=== PATIENT | female | born 1945 | race Caucasian/White ===

== ENCOUNTER 2017-12-10 09:43 | Outpatient (CLI) | payer MEDICARE ==
--- NOTE | 2017-12-10 15:32 | RAD ---
RIGHT FOOT 3 VIEWS: Date: 12/10/17 HISTORY: Abnormal uptake of radiotracer on bone scan. COMPARISON: None. FINDINGS: There is diffuse bone demineralization. No evidence of tarsal coalition. Lisfranc alignment is mainta ined. No significant loss of joint space height. No fractures. IMPRESSION: Unremarkable 3 views right foot. No acute abnormality. POS: [facility]
--- NOTE | 2017-12-10 15:37 | RAD ---
2 VIEWS RIGHT HIP: Date: 12/10/17 HISTORY: Abnormal uptake of radiotracer on recent bone scan. COMPARISON: None. FINDINGS: Mild loss of joint space height. Minimal enthesopathic change at the greater tuberosity. Definite fra cture/cortical irregularity is not appreciated. IMPRESSION: No obvious fracture at the greater trochanter. No radiographic correlate to explain the marked uptake of radiotracer on the bone scan. Therefore, MRI is recommended to better assess the bone marrow. CODE T. POS: [facility]
--- NOTE | 2017-12-10 15:59 | NM ---
NUCLEAR MEDICINE THREE PHASE BONE SCAN OF THE FEET AND WHOLE BODY BONE SCAN: 12/10/17 HISTORY: Unspecified injury of the foot. COMPARISON: None. TECHNIQUE: Patient administered 30 millicuries of technetium 99m MDP intravenously. Three phase imaging of the feet was performed. Whole body imaging is performed. FINDINGS: There is increased flow in the left foot involving the midfoot and hindfoot osseous structures, speci fically the talus navicular bone. There is associated increased signal in the blood pool in delayed i mages. Delayed images also demonstrate increased uptake in anterior right ribs, posterior left L5 ped icle, right knee. There is also marked radiotracer localization in the right greater trochanter. Aby elation made with right foot and right hip radiographs do not demonstrate any osseous abnormalities, by radiograph. The possibility of a radiographically occult stress fracture of the right foot and pos sible bursitis of the right hip cannot be excluded. MRI of both regions is recommended. IMPRESSION: Uptake of radiotracer as described above. MRI is recommended. Code T POS: [facility]
== END 2017-12-10 09:44 | disposition home or self-care (01) ==
LOC: NM 09:43
PROVIDERS: ATTEND Family Medicine
DX: S99.921A Unspecified injury of right foot, initial encounter (principal)
CPT/HCPCS: 73502; 73630; 78315; A9503

== ENCOUNTER 2018-07-06 08:48 | Outpatient (CLI) | payer MEDICARE ==
--- NOTE | 2018-07-06 10:12 | MMO ---
Bilateral MAMMO Bilat Screen [facility]. CLINICAL HISTORY: Patient is 73 years old and is seen for screening. The patient has no family history of breast cancer. The patient has no personal history of cancer. VIEWS: The views performed were: bilateral craniocaudal with tomosynthesis; bilateral mediolateral oblique with tomosynthesis; and bilateral exaggerated craniocaudal. FILMS COMPARED: The present examination has been compared to prior imaging studies performed at [facility] on 04/25/2010, 04/26/2010, 06/04/2011, 10/23/2014 and 01/30/2016. MAMMOGRAM FINDINGS: There are scattered fibroglandular densities. There are stable benign appearing calcifications seen in the left breast. There are no suspicious masses, suspicious calcifications, or new areas of architectural distortion. IMPRESSION: THERE IS NO MAMMOGRAPHIC EVIDENCE OF MALIGNANCY. A ROUTINE FOLLOW-UP MAMMOGRAM IN 1 YEAR IS RECOMMENDED. THE RESULTS OF THIS EXAM WERE SENT TO THE PATIENT. ACR BI-RADS Category 2 - Benign finding MAMMOGRAPHY NOTE: 1. A negative mammogram report should not delay a biopsy if a dominant of clinically suspicious mass is present. 2. Approximately 10% to 15% of breast cancers are not detected by mammography. 3. Adenosis and dense breasts may obscure an underlying neoplasm.
== END 2018-07-06 08:49 | disposition home or self-care (01) ==
LOC: BICMAMMO 08:48
PROVIDERS: ATTEND Family Medicine
DX: Z12.31 Encounter for screening mammogram for malignant neoplasm of breast (principal)
CPT/HCPCS: 77063; 77067

== ENCOUNTER 2018-11-15 13:43 | Outpatient (CLI) | payer MEDICARE ==
[~2018-11-15 13:43] MED LIST: ISOVUE-370 76%-LOCM 1 ML ONE
--- NOTE | 2018-11-15 14:24 | ULT ---
Ultrasound Doppler duplex carotid: DATE: 11/15/2018 HISTORY: 73-year-old female with facial weakness. TECHNIQUE: Grayscale, color-flow, and spectral analysis, of major arteries of neck. FINDINGS: No significant plaque visualized. Highest peak systolic velocities in the internal carotid arteries: Right: 125 Left: 105 ICA/CCA ratios: Right: 0.9 Left: 0.8 Pulse Doppler waveforms are normal. IMPRESSION: Normal
[2018-11-15 14:26] LABS: Estimated GFR-MDRD - POC Greater than 90
--- NOTE | 2018-11-15 14:48 | CT ---
CT HEAD WITH AND WITHOUT CONTRAST: Reference is made to 03/20/2014 brain MRI. CLINICAL INDICATION: Dizziness. FINDINGS: Stable prominent ex vacuo dilatation of ventricular system, notably the left lateral ventri aurelia due to adjacent encephalomalacia. Extra-axial cystic lesion, 2.2 cm, is suggested overlying the left convexity, although limited in assessment by CT imaging. No associated enhancement. No acute mid line shift. Multifocal fluid layering of paranasal sinuses is seen. IMPRESSION: Prominent ex vacuo dilatation of left lateral ventricle with adjacent encephalomalacia of the left cerebral hemisphere. Extra-axial cystic lesion is suggested without associated enhancement. Transcribed Date/Time: 11/15/2018 2:58 PM
== END 2018-11-15 13:44 | disposition home or self-care (01) ==
LOC: BICULT 13:43
PROVIDERS: ATTEND Physician Assistant Medical
DX: R42 Dizziness and giddiness (principal); R51 Headache; R29.810 Facial weakness; G93.89 Other specified disorders of brain
CPT/HCPCS: 70470; 82565; 93880; Q9966

== ENCOUNTER 2020-02-29 10:53 | Outpatient (CLI) | payer MEDICARE ==
--- NOTE | 2020-02-29 13:57 | MMO ---
Bilateral MAMMO Bilat Screen [facility]. CLINICAL HISTORY: Patient is 74 years old and is seen for screening. The patient has no family history of breast cancer. The patient has no personal history of cancer. VIEWS: The views performed were: bilateral craniocaudal with tomosynthesis; bilateral mediolateral oblique with tomosynthesis; and bilateral exaggerated craniocaudal. FILMS COMPARED: The present examination has been compared to prior imaging studies performed at [facility] on 06/04/2011, 10/23/2014, 01/30/2016 and 07/06/2018. This study has been interpreted with the assistance of computer-aided detection. MAMMOGRAM FINDINGS: There are scattered fibroglandular densities. Benign calcifications are noted bilaterally. There are no suspicious masses, suspicious calcifications, or new areas of architectural distortion. IMPRESSION: THERE IS NO MAMMOGRAPHIC EVIDENCE OF MALIGNANCY. A ROUTINE FOLLOW-UP MAMMOGRAM IN 1 YEAR IS RECOMMENDED. THE RESULTS OF THIS EXAM WERE SENT TO THE PATIENT. ACR BI-RADS Category 2 - Benign finding MAMMOGRAPHY NOTE: 1. A negative mammogram report should not delay a biopsy if a dominant of clinically suspicious mass is present. 2. Approximately 10% to 15% of breast cancers are not detected by mammography. 3. Adenosis and dense breasts may obscure an underlying neoplasm. Reported by: STEPHANIE BRITO MD Electonically Signed: [id number]
== END 2020-02-29 10:54 | disposition home or self-care (01) ==
LOC: BICMAMMO 10:53
PROVIDERS: ATTEND Physician Assistant Medical
DX: Z12.31 Encounter for screening mammogram for malignant neoplasm of breast (principal)
CPT/HCPCS: 77063; 77067

== ENCOUNTER 2021-08-27 13:00 | Outpatient (CLI) | payer MEDICARE | END 2021-08-27 13:01 | disposition home or self-care (01) | LOC: BICRAD 13:00 | PROVIDERS: ATTEND Nurse Practitioner Family | DX: R05.9 Cough, unspecified (principal); R91.8 Other nonspecific abnormal finding of lung field | CPT/HCPCS: 71046 ==

== ENCOUNTER 2021-09-03 08:46 | Outpatient (CLI) | payer MEDICARE ==
[2021-09-03 09:30] LABS: Estimated GFR-MDRD - POC Greater than 90
== END 2021-09-03 08:47 | disposition home or self-care (01) ==
LOC: CT 08:46
PROVIDERS: ATTEND Nurse Practitioner Family
DX: R05.9 Cough, unspecified (principal); R91.8 Other nonspecific abnormal finding of lung field
CPT/HCPCS: 71046; 71260; 82565

== ENCOUNTER 2022-07-23 13:20 | Outpatient (CLI) | payer MEDICARE | END 2022-07-23 13:21 | disposition home or self-care (01) | LOC: BICRAD 13:20 | PROVIDERS: ATTEND Nurse Practitioner Family | DX: R91.1 Solitary pulmonary nodule (principal); R06.2 Wheezing; R91.8 Other nonspecific abnormal finding of lung field | CPT/HCPCS: 36415; 71046; 80053; 85025 ==

== ENCOUNTER 2024-03-25 12:42 | Outpatient (CLI) | payer MEDICARE | END 2024-03-25 12:43 | disposition home or self-care (01) | LOC: BICMRI 12:42 | PROVIDERS: ATTEND Family Medicine Sports Medicine | DX: M25.461 Effusion, right knee (principal); S83.241A Other tear of medial meniscus, current injury, right knee, initial encounter; M22.2X1 Patellofemoral disorders, right knee ==